=== PATIENT | male | born 1985 | race Caucasian/White ===

== ENCOUNTER 2018-03-06 12:58 | Emergency (ER) | payer SELFPAY ==
[2018-03-06 13:12] VITALS: BMI 24.3
[2018-03-06] MEDS ORDERED: KETOROLAC TROMETHAMINE 60 MG/2 ML VIAL IM ONE (13:14)
--- NOTE | 2018-03-06 13:36 | PDOC ---
History of Present Illness <Margarito Joy - Last Filed: 03/06/18 17:26> - General History Source: Patient - History of Present Illness Initial Comments: 03/06/18 14:43 The patient is a 32 year old male with no reported significant PMH who presents with a 4 day h/o subjective fever, cough, sore throat. Was evaluated for his symptoms at urgent care on at which time Rapid Strep was negative and he was started on Amoxicillin. As his symptoms became more severe he decided to come to the ED today for further evaluation. Patient notes he received the flu shot 8 days previous. Flash jim @ home. ROS positive for body aches including neck ache which he attributes to sleeping on a futon as well as photophobia. NKDA Surgical: denies Social: denies toxic habits PMD: Dr. Ferreira <Maryjane Peres - Last Filed: 03/06/18 18:02> - General Chief Complaint: Sore Throat Stated Complaint: MUSCLE ACHES/FEVER Time Seen by Provider: 03/06/18 13:14 Past History <Margarito Joy - Last Filed: 03/06/18 17:26> - Past Medical History COPD: No - Immunization History Immunization Up to Date: Yes - Suicide/Smoking/Psychosocial Hx Smoking History: Never smoked Hx Alcohol Use: No Drug/Substance Use Hx: No <Maryjane Peres - Last Filed: 03/06/18 18:02> - Past Medical History Allergies/Adverse Reactions: Allergies Allergy/AdvReac Type Severity Reaction Status Date / Time No Known Allergies Allergy Verified 03/06/18 13:08 Home Medications: Ambulatory Orders Amoxicillin - [Amoxicillin 875mg Tablet -] 875 mg PO BID 03/06/18 Naproxen 500 mg PO BID PRN #14 tablet 03/06/18 Review of Systems - Review of Systems Constitutional: Yes: Fever HEENTM: No: Blurred Vision, Double Vision Respiratory: Yes: Cough. No: Shortness of Breath Cardiac (ROS): No: Chest Pain, Lightheadedness, Palpitations, Syncope ABD/GI: No: Constipated, Diarrhea, Nausea, Vomiting <Maryjane Peres - Last Filed: 03/06/18 18:02> *Physical Exam - Vital Signs Last Vital Signs Temp Pulse Resp BP Pulse Ox 101.5 F H 78 18 132/76 100 03/06/18 15:25 03/06/18 15:25 03/06/18 15:25 03/06/18 15:25 03/06/18 15:25 <RufinoMargarito - Last Filed: 03/06/18 17:26> - Vital Signs Last Vital Signs Temp Pulse Resp BP Pulse Ox 102.2 F H 95 H 18 125/72 98 03/06/18 13:08 03/06/18 13:08 03/06/18 13:08 03/06/18 13:08 03/06/18 13:08 - Physical Exam General Appearance: Yes: Nourished, Appropriately Dressed HEENT: positive: EOMI, MARCO, Normal Voice, Tonsillar Exudate, Hearing Grossly Normal, TM Erythema (L>R). negative: TM Bulging, TM Dull Neck: positive: Trachea midline, Supple Respiratory/Chest: positive: Wheezing (R base). negative: Accessory Muscle Use , Rapid RR, Crackles Cardiovascular: positive: S1, S2 Gastrointestinal/Abdominal: positive: Normal Bowel Sounds, Soft. negative: Distended, Guarding, Rebound, Tenderness, Hernia, Mass Extremity: positive: Normal Capillary Refill, Normal Inspection Integumentary: positive: Normal Color, Dry, Warm Neurologic: positive: Fully Oriented, Alert <LarisaMaryjane - Last Filed: 03/06/18 18:02> ED Treatment Course - LABORATORY CBC & Chemistry Diagram: 03/06/18 14:30 03/06/18 14:30 - ADDITIONAL ORDERS Additional order review: Laboratory Results 03/06/18 14:30 Sodium 134 L Potassium 4.6 Chloride 98 Carbon Dioxide 29 Anion Gap 7 L BUN 8 Creatinine 1.2 Creat Clearance w eGFR > 60 Random Glucose 97 Calcium 9.3 Total Bilirubin 0.6 AST 19 ALT 10 L Alkaline Phosphatase 57 Total Protein 7.8 Albumin 3.6 03/06/18 14:17 Influenza Types A,B Antigen - Final Nasopharyngeal Swab - Final 03/06/18 14:17 Group A Strep Rapid Antigen - Final Throat 03/06/18 14:30 RBC 4.68 MCV 91.4 MCHC 33.4 RDW 12.8 MPV 8.8 Neutrophils % 71.6 Lymphocytes % 9.4 Monocytes % 18.4 H Eosinophils % 0.0 Basophils % 0.6 - Medications Given in the ED: ED Medications Discontinued Medications Generic Name Dose Route Start Last Admin Trade Name Josefina PRN Reason Stop Dose Admin Acetaminophen 1,000 mg 03/06/18 15:09 03/06/18 15:26 Ofirmev Injection - IVPB 03/06/18 15:10 1,000 mg ONCE ONE Administration Dexamethasone Sodium Phosphate 10 mg 03/06/18 14:12 03/06/18 14:30 Decadron Injection - IVPUSH 03/06/18 14:13 10 mg ONCE ONE Administration Ketorolac Tromethamine 60 mg 03/06/18 13:14 03/06/18 13:26 Toradol Injection - IM 03/06/18 13:15 60 mg ONCE ONE Administration Metoclopramide HCl 10 mg 03/06/18 15:09 03/06/18 15:28 Reglan Injection - IVPB 03/06/18 15:10 10 mg ONCE ONE Administration Sodium Chloride 1,000 ml 03/06/18 14:08 03/06/18 14:30 Normal Saline - IV 03/06/18 14:09 1,000 ml ONCE ONE Administration <Margarito Joy - Last Filed: 03/06/18 17:26> - LABORATORY CBC & Chemistry Diagram: 03/06/18 14:30 03/06/18 14:30 - Medications Given in the ED: ED Medications Discontinued Medications Generic Name Dose Route Start Last Admin Trade Name Josefina PRN Reason Stop Dose Admin Ketorolac Tromethamine 60 mg 03/06/18 13:14 03/06/18 13:26 Toradol Injection - IM 03/06/18 13:15 60 mg ONCE ONE Administration <Maryjane Peres - Last Filed: 03/06/18 18:02> Medical Decision Making - Medical Decision Making 03/06/18 14:44 32 year old male with pharnygeal exudates, tympanic erythema, fever, headache. Will test for Strep, Influenza. Neck supple, however notes neck pain. Will obtain CT head with planned LP. Tylenol, Decadron, IV NS. Reassess 03/06/18 15:[address] pending 03/06/18 16:54 CT negative Patient states headache is resolved. Discussed risks/benefits of Lumbar Puncture. Patient As patient is symptomatically improved will discharge home with strict return precautions and PMD follow-up. I discussed the physical exam findings, ancillary test results and final diagnoses with the patient. I answered all of the patient's questions. The patient was satisfied with the care received and felt comfortable with the discharge plan and treatment plan. The patient will return to the Emergency Department with any new, persistent or worsening symptoms. <Maryjane Peres - Last Filed: 03/06/18 18:02> *DC/Admit/Observation/Transfer <Margarito Joy - Last Filed: 03/06/18 17:26> - Discharge Dispostion Decision to Admit order: No <Maryjane Peres - Last Filed: 03/06/18 18:02> Diagnosis at time of Disposition: Headache - Discharge Dispostion Disposition: HOME Condition at time of disposition: Good - Prescriptions Prescriptions: Naproxen 500 mg PO BID PRN #14 tablet PRN Reason: Pain - Referrals Referrals: Fidel Mathews MD [Staff Physician] - - Patient Instructions Printed Discharge Instructions: DI for Headache Additional Instructions: Your symptoms today are likely due to a viral infection. However, a fever and bad headache can sometimes be a sign of a condition called meningitis, a potentially life threatening condition. This can only be diagnosed by a procedure called a lumbar puncture, or spinal tap. Because you refused the lumbar puncture today, we cannot definitively rule out meningitis. This means that by leaving the ER, you risk potentially getting sicker or even dying. Return to the Emergency Department immediately for any new/worsening/concerning symptoms including increase in severity of headache, nausea/vomiting, visual changes, continued fevers. We have sent a prescription for Naproxen to your pharmacy. Please take as needed for headache. Follow up with your primary care doctor in the next 2 days. You should also see an ENT specialist to evaluate your tonsils. Call the number provided to make an appointment.
[2018-03-06] MEDS ORDERED: SODIUM CHLORIDE 0.9% 500 ML INFUS.BAG IV ONE (14:08)
[2018-03-06] MEDS ORDERED: DEXAMETHASONE SOD PHOSPHATE 10 MG/1 ML VIAL IVPUSH ONE (14:12)
[2018-03-06] MEDS ORDERED: DEXAMETHASONE SOD PHOSPHATE 10 MG/1 ML VIAL ONE (14:18)
[2018-03-06 14:34] LABS: BASO % 0.6 % (0-2.0); HEMATOCRIT 42.8 % (35.4-49); HEMOGLOBIN 14.3 GM/dL (11.7-16.9); LYMPH % 9.4 % (8-40); MCH 30.5 pg (25.7-33.7); MCHC 33.4 g/dl (32.0-35.9); MEAN CELL VOLUME 91.4 fl (80-96); MEAN PLT VOLUME 8.8 fl (7.5-11.1); MONO % 18.4 % (3.8-10.2); NEUT % 71.6 % (42.8-82.8); PLATELET COUNT 230 K/MM3 (134-434); RBC 4.68 M/mm3 (4.00-5.60); RDW 12.8 % (11.9-15.9); WHITE BLOOD COUNT 14.7 K/mm3 (4.0-10.0)
[2018-03-06 14:53] LABS: ALBUMIN 3.6 g/dl (3.4-5.0); ALK PHOS 57 U/L (45-117); ANION GAP 7 MMOL/L (8-16); BILIRUBIN,TOTAL 0.6 mg/dL (0.2-1); BLOOD UREA NITROGEN 8 mg/dL (7-18); CALCIUM 9.3 mg/dL (8.5-10.1); CHLORIDE 98 mmol/L (98-107); CO2 29 mmol/L (21-32); CREATININE 1.2 mg/dL (0.55-1.3); GLUCOSE,RANDOM 97 mg/dL (74-106); POTASSIUM 4.6 mmol/L (3.5-5.1); SGOT/AST 19 U/L (15-37); SGPT/ALT 10 U/L (13-61); SODIUM 134 mmol/L (136-145); TOT PROT 7.8 g/dl (6.4-8.2)
[2018-03-06] MEDS ORDERED: ACETAMINOPHEN 1000 MG/100 ML VIAL (NON FORMULARY) IVPB ONE (15:09)
[2018-03-06] MEDS ORDERED: METOCLOPRAMIDE HCL INJECTION 10 MG/2 ML VIAL IVPB ONE (15:09)
[2018-03-06] MEDS ORDERED: METOCLOPRAMIDE HCL INJECTION 10 MG/2 ML VIAL ONE (15:13)
[2018-03-06] MEDS ORDERED: ACETAMINOPHEN INJECTION 100 ML IVPB ONE (15:13)
--- NOTE | 2018-03-06 15:27 | PDOC ---
Attending Attestation - Resident Resident Name: Maryjane Peres - ED Attending Attestation I have performed the following: I have examined & evaluated the patient, The case was reviewed & discussed with the resident, I agree w/resident's findings & plan, Exceptions are as noted - HPI HPI: 03/06/18 15:15 32 M with no PMH presents to ED with sore throat, fevers, and headache x 4 days. Pt was seen in urgent care 4 days ago, had negative rapid strep, and was started on amoxicillin. However, he has had persistent fevers and headaches since then. He has been taking tylenol and nyquil with no relief. - Physicial Exam PE: 03/06/18 15:27 GENERAL: Awake, alert, and fully oriented, in no acute distress. HEAD: No signs of trauma EYES: PERRLA, EOMI, sclera anicteric, conjunctiva clear ENT: + erythematous oropharynx with exudates, no abscess NECK: Nontender, no stepoffs, Normal ROM, supple, no lymphadenopathy, JVD, or masses LUNGS: Breath sounds equal, clear to auscultation bilaterally. No wheezes, and no crackles HEART: Regular rate and rhythm, normal S1 and S2, no murmurs, rubs or gallops ABDOMEN: Soft, nontender, normoactive bowel sounds. No guarding, no rebound. No masses EXTREMITIES: Normal range of motion, no edema. No clubbing or cyanosis. No cords, erythema, or tenderness NEUROLOGICAL: Cranial nerves II through XII intact. 5/5 strength and sensation in all extremities, Normal speech, normal gait, normal cerebellar function SKIN: Warm, Dry, normal turgor, no rashes or lesions noted. - Medical Decision Making 03/06/18 15:28 32 M with pharyngitis, fever, and headache. Likely viral syndrome. Pt had negative outpt strep test. Will check for flu as well. Pt has no clinical signs of meningismus, though he does report pain radiating from his head to his neck. Given fevers for 4 days and headache, will need to r/o meningitis. - Labs, cultures - rapid strep, flu - CT head - Lumbar puncture - IVF, tylenol, reglan 03/06/18 16:56 Labs notable for leukocytosis Rapid strep and flu negative CT head unremarkable Pt reassessed s/p IVF, tylenol, toradol, and reglan. Pt reports complete resolution of his symptoms. At this time, I recommended to pt that we still perform an LP to rule out meningitis. However, pt is refusing to have this done at this time. Pt understands that without LP, we cannot definitively rule out meningitis. Pt is well appearing, with normal vitals. Clinically stable for DC at this time. I discussed the physical exam findings, ancillary test results and final diagnoses with the patient. I answered all of the patient's questions. The patient was satisfied with the care received and felt comfortable with the discharge plan and treatment plan. The patient agrees to follow up with the primary care physician within 24-72 hours.
[2018-03-06 17:21] VITALS: BP 122/76; PULSE 66; TEMP 98.6
== END 2018-03-06 17:34 | disposition home or self-care (01) ==
LOC: JER 12:58 → JERFT 12:58 → JER 17:34
PROC: 3E0233Z Introduction of Anti-inflammatory into Muscle, Percutaneous Approach (ICD-10-PCS; principal; 2018-03-06)
PROC: 3E033GC Introduction of Other Therapeutic Substance into Peripheral Vein, Percutaneous Approach (ICD-10-PCS; 2018-03-06)
PROC: 3E033NZ Introduction of Analgesics, Hypnotics, Sedatives into Peripheral Vein, Percutaneous Approach (ICD-10-PCS; 2018-03-06)
PROC: 3E0333Z Introduction of Anti-inflammatory into Peripheral Vein, Percutaneous Approach (ICD-10-PCS; 2018-03-06)
DX: R51 Headache (principal)
CPT/HCPCS: 36415; 70450-TC; 71045-TC-FY; 80053; 85025; 87040; 87070; 87430; 87804; 99283-25; J0131; J1100

== ENCOUNTER 2019-12-20 14:57 | Emergency (ER) | payer OTHER ==
[2019-12-20] MEDS ORDERED: ASPIRIN 81 MG CHEWABLE TABLETS ONE (15:16)
[2019-12-20 15:24] VITALS: PULSE 72; TEMP 98.1; BMI 24.3
--- NOTE | 2019-12-20 15:24 | PDOC ---
History of Present Illness - General Stated Complaint: CHEST PAIN History Source: Patient Exam Limitations: No Limitations - History of Present Illness Initial Comments: 12/20/19 15:23 34yM w PMHx pericarditis 2017, myocarditis 2019 presenting w consistent L chest discomfort after waking up at 1pm today. No associated w exertion/position. Didnt take any meds for symptoms. Denies etoh, illicit drug abuse, fam cardiac hx. Last February 2019 had similar chest pain during agility test, transferred to [facility], cath showed possible myocarditis. Denies fever, cough, n/v, SOB, ABD pain, urinary/bowel mvmt changes. Past History - Medical History Allergies/Adverse Reactions: Allergies Allergy/AdvReac Type Severity Reaction Status Date / Time No Known Allergies Allergy Verified 03/06/18 13:08 Home Medications: Ambulatory Orders Amoxicillin - [Amoxicillin 875mg Tablet -] 875 mg PO BID 03/06/18 Naproxen 500 mg PO BID PRN #14 tablet 03/06/18 COPD: No - Immunization History Immunization Up to Date: Yes - Psycho-Social/Smoking History Smoking History: Never smoked Review of Systems - Review of Systems Constitutional: No: Chills, Fever HEENTM: No: Eye Pain, Nose Pain Respiratory: No: Cough, Shortness of Breath Cardiac (ROS): Yes: Chest Pain. No: Palpitations ABD/GI: No: Constipated, Diarrhea, Nausea, Vomiting : No: Burning, Dysuria Musculoskeletal: No: Back Pain, Joint Pain Integumentary: No: Bruising, Flushing Neurological: No: Headache, Seizure Psychiatric: No: Anxiety, Depression Endocrine: No: Intolerance to Cold, Intolerance to Heat Hematologic/Lymphatic: No: Anemia, Blood Clots *Physical Exam - Vital Signs Last Vital Signs Temp Pulse Resp BP Pulse Ox 98.1 F 72 20 135/75 100 12/20/19 15:21 12/20/19 15:21 12/20/19 15:21 12/20/19 15:21 12/20/19 15:21 - Physical Exam General Appearance: Yes: Nourished, Appropriately Dressed, Mild Distress HEENT: positive: EOMI, MARCO, Normal Voice, Hearing Grossly Normal. negative: Scleral Icterus (R), Scleral Icterus (L) Respiratory/Chest: positive: Lungs Clear, Normal Breath Sounds. negative: Chest Tender, Respiratory Distress Cardiovascular: positive: Regular Rhythm, Regular Rate, S1, S2. negative: Edema, Murmur Gastrointestinal/Abdominal: positive: Normal Bowel Sounds, Flat, Soft. negative: Tender, Organomegaly Integumentary: positive: Normal Color, Warm. negative: Dry Neurologic: positive: Fully Oriented, Alert, Normal Mood/Affect, Normal Response, Responsive. negative: Confused Heart Score/ECG Review - History History: Moderately suspicious - Electrocardiogram EKG: Significant ST-depression - Age Age: </= 45 - Risk Factors Risk Factors Heart Score: No Positive family hx of cardiac disease, No Hx Obesity Based on the list above the patient has:: No risk factors known - Troponin Troponin: </= normal limit - Score Heart Score - Total: 3 ED Treatment Course - LABORATORY CBC & Chemistry Diagram: 12/20/19 15:15 12/20/19 15:15 Medical Decision Making - Medical Decision Making 12/20/19 15:34 EKG 15:09 - sinus rhythm, HR 69, QTc 387, peaked T waves V3-5, ST elevation II, III, aVF, ST depression aVL, no priors EKG 1535 - sinus rhythm HR 74, peaked T waves V3-5, ST elevation II, III, aVF, V3-6, no ST depression aVL bedside echo - normal EF, no pericardial effusion --- 34yM w PMHx pericarditis 2017, myocarditis 2019 presenting w consistent L chest discomfort after waking up at 1pm today. 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 given 162 aspirin, heparin bolus Telecommunications Sales Representative Dr Lomeli - left message Transferred to [facility] for suspected STEMI, accepted by Dr Schaffer cards Discharge - Discharge Information Problems reviewed: Yes Clinical Impression/Diagnosis: STEMI (ST elevation myocardial infarction) Qualifiers: Involved coronary artery: unspecified coronary artery Qualified Code(s): I21.3 - ST elevation (STEMI) myocardial infarction of unspecified site Condition: Stable Disposition: TRANSFER ACUTE CARE/OTHER HOSP - Follow up/Referral - Patient Discharge Instructions - Post Discharge Activity - Transfer to Acute Care Facility Receiving Facility Name: [facility]
[2019-12-20] MEDS ORDERED: HEPARIN NA (PORCINE) 5,000 UNITS/ML 1ML VIAL IVPUSH PRN ×3 (15:46→15:49)
[2019-12-20] MEDS ORDERED: HEPARIN NA (PORCINE) 5,000 UNITS/ML 1ML VIAL ONE (15:53)
[2019-12-20] MEDS ORDERED: HEPARIN SOD,PORK IN 0.45% NACL 25,000 UNITS/500 ML INFUS.BAG IVPB SCH (16:00)
[2019-12-20 16:04] LABS: BASO % 0.5 % (0-2.0); EOS % 0.4 % (0-4.5); HEMATOCRIT 50.9 % (35.4-49); HEMOGLOBIN 16.2 GM/dL (11.7-16.9); LYMPH % 13.7 % (8-40); MCH 29.7 pg (25.7-33.7); MCHC 31.7 g/dl (32.0-35.9); MEAN CELL VOLUME 93.6 fl (80-96); MEAN PLT VOLUME 9.6 fl (7.5-11.1); MONO % 8.4 % (3.8-10.2); PLATELET COUNT 317 K/MM3 (134-434); RBC 5.44 M/mm3 (4.00-5.60); RDW 13.2 % (11.9-15.9); WHITE BLOOD COUNT 14.9 K/mm3 (4.0-10.0)
[2019-12-20 16:12] LABS: INR 0.99 (0.83-1.09); PROTHROMBIN TIME (PATIENT) 11.7 SEC (9.7-13.0)
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
[2019-12-20 16:32] VITALS: BP 137/65
[2019-12-20 16:41] LABS: ALBUMIN 4.4 g/dl (3.4-5.0); CALCIUM 9.8 mg/dL (8.5-10.1); CREATININE 1.1 mg/dL (0.55-1.3); POTASSIUM 4.3 mmol/L (3.5-5.1); TOT PROT 8.2 g/dl (6.4-8.2)
[2019-12-20 16:50] LABS: BILIRUBIN,TOTAL 0.6 mg/dL (0.2-1)
--- NOTE | 2019-12-21 14:54 | EKG ---
Test Reason : Blood Pressure : / mmHG Vent. Rate : 074 BPM Atrial Rate : 074 BPM P-R Int : 162 ms QRS Dur : 084 ms QT Int : 354 ms P-R-T Axes : 059 036 049 degrees QTc Int : 392 ms NORMAL SINUS RHYTHM ST ELEVATION CONSIDER INFEROLATERAL INJURY OR ACUTE INFARCT ACUTE VA / STEMI ABNORMAL ECG WHEN COMPARED WITH ECG OF 20-DEC-2019 15:09, NO SIGNIFICANT CHANGE WAS FOUND Confirmed by ROCK KITCHEN MD ([id number]) on 12/21/2019 2:54:33 PM Referred By: Confirmed By:ROCK KITCHEN MD
--- NOTE | 2019-12-25 10:58 | EKG ---
Test Reason : Blood Pressure : / mmHG Vent. Rate : 069 BPM Atrial Rate : 069 BPM P-R Int : 158 ms QRS Dur : 086 ms QT Int : 362 ms P-R-T Axes : 071 040 063 degrees QTc Int : 387 ms NORMAL SINUS RHYTHM POSSIBLE LEFT ATRIAL ENLARGEMENT ST ELEVATION CONSIDER INFERIOR INJURY OR ACUTE INFARCT ACUTE IN / STEMI ABNORMAL ECG NO PREVIOUS ECGS AVAILABLE Confirmed by Beena Baron ([id number]) on 12/25/2019 10:57:50 AM Referred By: Confirmed By:Beena Barno
== END 2019-12-20 16:30 | disposition short-term general hospital (02) ==
LOC: JER 14:57
PROC: 3E033GC Introduction of Other Therapeutic Substance into Peripheral Vein, Percutaneous Approach (ICD-10-PCS; principal; 2019-12-20)
DX: I21.3 ST elevation (STEMI) myocardial infarction of unspecified site (principal)
CPT/HCPCS: 36415; 80053; 82550; 82553; 84484; 85025; 85610; 86850; 86900; 86901; 93005; 93010; 99291; J1644